=== PATIENT | male | born 1950 | race Caucasian/White ===

== ENCOUNTER 2023-04-14 13:10 | Emergency (ER) | payer OTHER ==
[~2023-04-14] VITALS: Ht 170.2 cm; Wt 70.3 kg
[2023-04-14] MEDS ORDERED: ATACAND32 MG (13:35)
[2023-04-14] MEDS ORDERED: NEURONTIN300 MG (13:35)
[2023-04-14] MEDS ORDERED: LIPITOR20 MG (13:35)
[2023-04-14] MEDS ORDERED: PROSCAR5 MG (13:36)
[2023-04-14] MEDS ORDERED: URSO250 MG (13:36)
[2023-04-14] MEDS ORDERED: TAMS0.4C (13:36)
== END 2023-04-14 17:00 | disposition home or self-care (01) ==
LOC: ER 13:10
DX: S40.812A Abrasion of left upper arm, initial encounter (principal); W18.30XA Fall on same level, unspecified, initial encounter; Y93.9 Activity, unspecified; Y92.9 Unspecified place or not applicable; Y99.9 Unspecified external cause status